=== PATIENT | female | born 1965 | race Hispanic/Latino ===

== ENCOUNTER 2017-12-02 15:32 | Emergency (ER) | payer OTHER ==
[~2017-12-02 15:32] MED LIST: CELE200 PO; FENT-77 TD; OXYC10TA48 PO; PREG75 PO; SENN-107 PO
[2017-12-02] MEDS ORDERED: DEXAMETHASONE SOD PHOSPHATE 10MG/ML 1ML VIAL ONE (16:17)
[2017-12-02] MEDS ORDERED: FAMOTIDINE 20MG TAB 20 MG TAB ONE (16:32)
[2018-02-05] MEDS ORDERED: LORA10CA9 PO (12:15)
[2018-02-05] MEDS ORDERED: TUMERIC PO (12:15)
[2018-02-05] MEDS ORDERED: FLUTICASONE (12:15)
[2018-02-05] MEDS ORDERED: ONDA8TAB12 PO (12:15)
[2018-02-05] MEDS ORDERED: PREG75 PO (12:15)
[2018-02-05] MEDS ORDERED: TRAZ-144 PO (12:15)
[2018-02-05] MEDS ORDERED: BISA5TAB12 PO (12:15)
[2018-02-05] MEDS ORDERED: DIPH25CA99 PO (12:15)
[2018-02-05] MEDS ORDERED: TOPI50TA24 PO (12:15)
== END 2017-12-02 17:30 | disposition home or self-care (01) ==
LOC: EDH 15:32
DX: T78.49XA Other allergy, initial encounter (principal); L29.9 Pruritus, unspecified; M19.90 Unspecified osteoarthritis, unspecified site; Z88.8 Allergy status to other drugs, medicaments and biological substances; Z91.041 Radiographic dye allergy status; Z91.040 Latex allergy status; X58.XXXA Exposure to other specified factors, initial encounter
CPT/HCPCS: 96372; 99283; J1100

== ENCOUNTER 2017-12-06 10:26 | Emergency (ER) | payer OTHER ==
[2017-12-06] MEDS ORDERED: ACETAMINOPHEN EXTRA STRENGTH 500 MG TABLET ONE (10:49)
[2017-12-06 12:06] LABS: RAPID GROUP A STREP NEGATIVE (NEGATIVE)
[2018-02-05] MEDS ORDERED: TRAZ-144 PO (12:15)
[2018-02-05] MEDS ORDERED: TUMERIC PO (12:15)
[2018-02-05] MEDS ORDERED: DIPH25CA99 PO (12:15)
[2018-02-05] MEDS ORDERED: ONDA8TAB12 PO (12:15)
[2018-02-05] MEDS ORDERED: BISA5TAB12 PO (12:15)
[2018-02-05] MEDS ORDERED: PREG75 PO (12:15)
[2018-02-05] MEDS ORDERED: TOPI50TA24 PO (12:15)
[2018-02-05] MEDS ORDERED: LORA10CA9 PO (12:15)
[2018-02-05] MEDS ORDERED: FLUTICASONE (12:15)
== END 2017-12-06 12:36 | disposition home or self-care (01) ==
LOC: EDH 10:26
DX: J10.1 Influenza due to other identified influenza virus with other respiratory manifestations (principal); M19.90 Unspecified osteoarthritis, unspecified site; M79.7 Fibromyalgia; Z88.8 Allergy status to other drugs, medicaments and biological substances; Z91.040 Latex allergy status; Z90.710 Acquired absence of both cervix and uterus; Z90.49 Acquired absence of other specified parts of digestive tract
CPT/HCPCS: 87804; 87880

== ENCOUNTER 2017-12-16 17:24 | Emergency (ER) | payer OTHER ==
[2017-12-16] MEDS ORDERED: PROCHLORPERAZINE EDISYLATE 10 MG/2 ML VIAL ONE ×2 (18:34→18:51)
[2017-12-16] MEDS ORDERED: SODIUM CHLORIDE 0.9% 1000ML 1,000 ML IV ONE ×2 (18:34→18:51)
[2017-12-16] MEDS ORDERED: DiphenhydrAMINE HCL 50 MG/ML VIAL ONE ×2 (18:34→18:51)
[2017-12-16] MEDS ORDERED: DEXAMETHASONE SOD PHOSPHATE 10MG/ML 1ML VIAL ONE ×2 (18:34→18:51)
[2018-02-05] MEDS ORDERED: DIPH25CA99 PO (12:15)
[2018-02-05] MEDS ORDERED: LORA10CA9 PO (12:15)
[2018-02-05] MEDS ORDERED: FLUTICASONE (12:15)
[2018-02-05] MEDS ORDERED: TOPI50TA24 PO (12:15)
[2018-02-05] MEDS ORDERED: PREG75 PO (12:15)
[2018-02-05] MEDS ORDERED: TRAZ-144 PO (12:15)
[2018-02-05] MEDS ORDERED: TUMERIC PO (12:15)
[2018-02-05] MEDS ORDERED: BISA5TAB12 PO (12:15)
[2018-02-05] MEDS ORDERED: ONDA8TAB12 PO (12:15)
== END 2017-12-16 20:15 | disposition home or self-care (01) ==
LOC: EDH 17:24
DX: G43.909 Migraine, unspecified, not intractable, without status migrainosus (principal); R11.2 Nausea with vomiting, unspecified; M19.90 Unspecified osteoarthritis, unspecified site; M79.1 Myalgia; Z91.041 Radiographic dye allergy status; Z91.040 Latex allergy status; Z88.8 Allergy status to other drugs, medicaments and biological substances; Z90.710 Acquired absence of both cervix and uterus
CPT/HCPCS: 96361; 96374; 96375; 99284; J0780 ×2; J1100 ×2; J1200 ×2; J7030 ×2

== ENCOUNTER 2017-12-28 10:29 | Emergency (ER) | payer OTHER ==
[2017-12-28] MEDS ORDERED: ONDANSETRON HCL 4 MG/2 ML VIAL ONE (11:21)
[2017-12-28] MEDS ORDERED: KETOROLAC TROMETHAMINE 30MG/ML ONE (11:21)
[2017-12-28] MEDS ORDERED: DiphenhydrAMINE HCL 50 MG/ML VIAL ONE (11:21)
[2017-12-28] MEDS ORDERED: DEXAMETHASONE SOD PHOSPHATE 10MG/ML 1ML VIAL ONE (12:05)
[2018-02-05] MEDS ORDERED: PREG75 PO (12:15)
[2018-02-05] MEDS ORDERED: FLUTICASONE (12:15)
[2018-02-05] MEDS ORDERED: DIPH25CA99 PO (12:15)
[2018-02-05] MEDS ORDERED: BISA5TAB12 PO (12:15)
[2018-02-05] MEDS ORDERED: LORA10CA9 PO (12:15)
[2018-02-05] MEDS ORDERED: TRAZ-144 PO (12:15)
[2018-02-05] MEDS ORDERED: TOPI50TA24 PO (12:15)
[2018-02-05] MEDS ORDERED: ONDA8TAB12 PO (12:15)
[2018-02-05] MEDS ORDERED: TUMERIC PO (12:15)
== END 2017-12-28 12:53 | disposition home or self-care (01) ==
LOC: EDH 10:29
DX: G43.909 Migraine, unspecified, not intractable, without status migrainosus (principal); M19.90 Unspecified osteoarthritis, unspecified site; Z88.8 Allergy status to other drugs, medicaments and biological substances; Z91.041 Radiographic dye allergy status; Z91.040 Latex allergy status
CPT/HCPCS: 70450; 96374; 96375; 99284; J1100; J1200; J1885; J2405

== ENCOUNTER 2018-01-06 12:29 | Emergency (ER) | payer OTHER ==
[~2018-01-06] VITALS: Ht 162.6 cm; Wt 97.5 kg
[2018-01-06] MEDS ORDERED: DiphenhydrAMINE HCL 50 MG/ML VIAL ONE (14:33)
[2018-01-06] MEDS ORDERED: ONDANSETRON HCL 4 MG/2 ML VIAL ONE (14:33)
[2018-01-06] MEDS ORDERED: KETOROLAC TROMETHAMINE 30MG/ML ONE (14:33)
[2018-01-06] MEDS ORDERED: METOCLOPRAMIDE 10 MG TABLET ONE (14:34)
[2018-01-06 15:23] LABS: BASOPHILS % (AUTO) 0.8 % (0.0-5.0); EOSINOPHILS % (AUTO) 2.5 % (0.0-8.0); HEMATOCRIT 39.8 % (36-48); LYMPHOCYTES % (AUTO) 32.1 % (21.0-51.0); MEAN CORPUSCULAR HEMOGLOBIN 30.1 pg (27.0-33.0); MEAN CORPUSCULAR HGB CONC 34.2 g/dL (32.0-36.0); MEAN CORPUSCULAR VOLUME 87.9 fL (79-99); MONOCYTES % (AUTO) 8.6 % (3.0-13.0); PLATELET COUNT (AUTO) 313 K/uL (130-400); RED BLOOD CELL COUNT(AUTO) 4.53 MIL/uL (4.00-5.50); RED CELL DISTRIBUTION WIDTH 13.6 % (11.0-15.5); WHITE BLOOD COUNT (AUTO) 5.7 K/uL (4.8-10.8)
[2018-01-06 15:40] LABS: CREATININE 0.8 mg/dL (0.5-1.5); POTASSIUM 4.4 mmol/L (3.5-5.1)
[2018-01-06] MEDS ORDERED: SUMATRIPTAN SUCCINATE 25 MG TABLET PO NR (16:45)
[2018-02-05] MEDS ORDERED: DIPH25CA99 PO (12:15)
[2018-02-05] MEDS ORDERED: TUMERIC PO (12:15)
[2018-02-05] MEDS ORDERED: TOPI50TA24 PO (12:15)
[2018-02-05] MEDS ORDERED: PREG75 PO (12:15)
[2018-02-05] MEDS ORDERED: FLUTICASONE (12:15)
[2018-02-05] MEDS ORDERED: ONDA8TAB12 PO (12:15)
[2018-02-05] MEDS ORDERED: BISA5TAB12 PO (12:15)
[2018-02-05] MEDS ORDERED: LORA10CA9 PO (12:15)
[2018-02-05] MEDS ORDERED: TRAZ-144 PO (12:15)
== END 2018-01-06 17:09 | disposition home or self-care (01) ==
LOC: EDH 12:29
DX: G43.909 Migraine, unspecified, not intractable, without status migrainosus (principal); M19.90 Unspecified osteoarthritis, unspecified site; M79.7 Fibromyalgia; Z88.8 Allergy status to other drugs, medicaments and biological substances; Z90.49 Acquired absence of other specified parts of digestive tract
CPT/HCPCS: 36415; 70450; 80048; 85025; 85651; 96374; 96375; 99285; J1200; J1885; J2405

== ENCOUNTER 2018-02-06 06:27 | Day surgery (SDC) | payer OTHER ==
[~2018-02-06] VITALS: Ht 165.1 cm; Wt 35.8 kg
[~2018-02-06 06:27] MED LIST changes: +BISA5TAB12 PO; -CELE200 PO; +DIPH25CA99 PO; -FENT-77 TD; +FLUTICASONE; +LORA10CA9 PO; +ONDA8TAB12 PO; -OXYC10TA48 PO; -SENN-107 PO; +TOPI50TA24 PO; +TRAZ-144 PO; +TUMERIC PO
[2018-02-06 06:34] VITALS: BP 106/54
[2018-02-06] MEDS ORDERED: SODIUM CHLORIDE 0.9% 1000ML 1,000 ML IV ONE (06:34)
[2018-02-06] MEDS ORDERED: ESOM20CA31 PO (07:23)
[2018-02-06] MEDS ORDERED: ONDANSETRON HCL MDV 20ML 2 MG/ML VIAL ONE (07:57)
== END 2018-02-06 08:40 | disposition home or self-care (01) ==
LOC: DAH 06:27
PROVIDERS: ATTEND Internal Medicine Gastroenterology
DX: R10.10 Upper abdominal pain, unspecified (principal); Z53.8 Procedure and treatment not carried out for other reasons
CPT/HCPCS: 43235; A4606; J7030

== ENCOUNTER → 2018-02-13 | Outpatient (CLI) | payer OTHER ==
[~2018-02-13] MED LIST changes: +ESOM20CA31 PO
== END ==
LOC: RAH 11:02
PROVIDERS: ATTEND Internal Medicine Gastroenterology
DX: R11.0 Nausea (principal)
CPT/HCPCS: 78264; A9541

== ENCOUNTER 2018-02-14 17:42 | Emergency (ER) | payer OTHER ==
[2018-02-14] MEDS ORDERED: LIDOCAINE 5% TOPICAL PATCH TP ONE (17:55)
[2018-02-14] MEDS ORDERED: KETOROLAC TROMETHAMINE 60 MG/2 ML VIAL ONE (17:55)
== END 2018-02-14 18:10 | disposition home or self-care (01) ==
LOC: EDH 17:42
DX: G89.29 Other chronic pain (principal); M54.5 Low back pain; M19.90 Unspecified osteoarthritis, unspecified site; M79.7 Fibromyalgia; G43.909 Migraine, unspecified, not intractable, without status migrainosus; Z91.040 Latex allergy status; Z88.8 Allergy status to other drugs, medicaments and biological substances
CPT/HCPCS: 96372; 99283; J1885

== ENCOUNTER → 2018-08-29 | Outpatient (CLI) | payer OTHER ==
[~2018-08-29] MED LIST changes: -TRAZ-144 PO; +TRAZ-185 PO
== END | disposition home or self-care (01) ==
LOC: RAH 09:12
PROVIDERS: ATTEND Internal Medicine Gastroenterology
DX: K76.89 Other specified diseases of liver (principal); R93.3 Abnormal findings on diagnostic imaging of other parts of digestive tract
CPT/HCPCS: 76700

== ENCOUNTER → 2018-09-04 | Outpatient (CLI) | payer OTHER | END | disposition home or self-care (01) | LOC: RAH 11:10 | PROVIDERS: ATTEND Physician Assistant Medical | DX: Z12.31 Encounter for screening mammogram for malignant neoplasm of breast (principal) | CPT/HCPCS: 77067 ==

== ENCOUNTER → 2018-09-24 | Outpatient (CLI) | payer OTHER | END | disposition home or self-care (01) | LOC: RAH 13:58 | PROVIDERS: ATTEND Internal Medicine Critical Care Medicine | DX: N60.01 Solitary cyst of right breast (principal); R92.8 Other abnormal and inconclusive findings on diagnostic imaging of breast; M19.90 Unspecified osteoarthritis, unspecified site | CPT/HCPCS: 76641; 77066 ==

== ENCOUNTER 2019-05-09 19:02 | Emergency (ER) | payer OTHER ==
[2019-05-09 20:22] LABS: BASOPHILS % (AUTO) 0.4 % (0.0-5.0); EOSINOPHILS % (AUTO) 0.6 % (0.0-8.0); HEMATOCRIT 32.7 % (36-48); MEAN CORPUSCULAR HEMOGLOBIN 28.4 pg (27.0-33.0); MEAN CORPUSCULAR HGB CONC 32.6 g/dL (32.0-36.0); MEAN CORPUSCULAR VOLUME 87.1 fL (79-99); MONOCYTES % (AUTO) 7.4 % (3.0-13.0); NEUTROPHILS % (AUTO) 71.6 % (40.0-77.0); PLATELET COUNT (AUTO) 152 K/uL (130-400); RED BLOOD CELL COUNT(AUTO) 3.76 MIL/uL (4.00-5.50); WHITE BLOOD COUNT (AUTO) 7.3 K/uL (4.8-10.8)
[2019-05-09 20:25] LABS: CREATININE 0.9 mg/dL (0.5-1.5); POTASSIUM 3.9 mmol/L (3.5-5.1)
== END 2019-05-09 21:52 | disposition home or self-care (01) ==
LOC: EDH 19:02
DX: R00.2 Palpitations (principal); F41.9 Anxiety disorder, unspecified; G43.909 Migraine, unspecified, not intractable, without status migrainosus; M19.90 Unspecified osteoarthritis, unspecified site; M79.7 Fibromyalgia; Z90.710 Acquired absence of both cervix and uterus; Z90.49 Acquired absence of other specified parts of digestive tract; Z88.8 Allergy status to other drugs, medicaments and biological substances
CPT/HCPCS: 36415; 71045; 80048; 83880; 84484; 85025; 93005

== ENCOUNTER 2019-07-05 17:25 | Emergency (ER) | payer OTHER ==
[2019-07-05] MEDS ORDERED: DEXAMETHASONE SOD PHOSPHATE 10MG/ML 1ML VIAL ONE (17:46)
[2019-07-05] MEDS ORDERED: PROCHLORPERAZINE EDISYLATE 10 MG/2 ML VIAL ONE (17:46)
[2019-07-05] MEDS ORDERED: DIPHENHYDRAMINE HCL 25 MG CAPSULE ONE (17:46)
[2019-07-05] MEDS ORDERED: SODIUM CHLORIDE 0.9% 1000ML 1,000 ML IV ONE (17:46)
[2019-07-10] MEDS ORDERED: CELE-84 PO (01:46)
[2019-07-10] MEDS ORDERED: PREG75 PO (01:46)
[2019-07-10] MEDS ORDERED: LUBI24CA2 PO ×2 (01:46→01:51)
[2019-07-10] MEDS ORDERED: BACL10TA PO (01:46)
[2019-07-10] MEDS ORDERED: TRAM50TA4 PO (01:46)
[2019-07-10] MEDS ORDERED: BUSP30TA2 PO (01:46)
[2019-07-10] MEDS ORDERED: CHOL500050 PO (01:46)
[2019-07-10] MEDS ORDERED: ONDA8TAB12 PO (01:46)
[2019-07-10] MEDS ORDERED: BETH25 PO (01:46)
[2019-07-10] MEDS ORDERED: ASPI-555 PO (15:41)
== END 2019-07-05 19:18 | disposition home or self-care (01) ==
LOC: EDH 17:25
DX: G43.909 Migraine, unspecified, not intractable, without status migrainosus (principal); F41.9 Anxiety disorder, unspecified; M19.90 Unspecified osteoarthritis, unspecified site; Z90.49 Acquired absence of other specified parts of digestive tract; Z90.710 Acquired absence of both cervix and uterus; Z91.041 Radiographic dye allergy status; Z91.040 Latex allergy status; Z88.8 Allergy status to other drugs, medicaments and biological substances
CPT/HCPCS: 96374; 96375; 99284; J0780; J1100; J7030; Q0163

== ENCOUNTER 2019-07-09 16:38 | Observation (INO) | payer OTHER | END 2019-07-11 17:30 | disposition home or self-care (01) | LOC: EDH 16:38 → EDHIP 18:56 → 3CH 21:40 ==

== ENCOUNTER → 2019-10-14 | Outpatient (CLI) | payer OTHER ==
[~2019-10-14] MED LIST changes: +ASPI-555 PO; +BACL10TA PO; +BETH25 PO; -BISA5TAB12 PO; +BUSP30TA2 PO; +CELE-84 PO; -DIPH25CA99 PO; -ESOM20CA31 PO; -FLUTICASONE; +FOLI1TAB15 PO; -LORA10CA9 PO; +LUBI24CA2 PO; +TRAM50TA4 PO; -TRAZ-185 PO; -TUMERIC PO
== END | disposition home or self-care (01) ==
LOC: RAH 10:57
PROVIDERS: ATTEND Internal Medicine Critical Care Medicine
DX: N60.01 Solitary cyst of right breast (principal); N64.89 Other specified disorders of breast; N63.11 Unspecified lump in the right breast, upper outer quadrant; N60.02 Solitary cyst of left breast
CPT/HCPCS: 76641; 77066

== ENCOUNTER → 2020-12-02 | Outpatient (CLI) | payer OTHER ==
[~2020-12-02] MED LIST changes: -ASPI-555 PO; +ASPI-556 PO
== END | disposition home or self-care (01) ==
LOC: RAH 10:02
PROVIDERS: ATTEND Physician Assistant Medical
DX: N60.01 Solitary cyst of right breast (principal); N60.02 Solitary cyst of left breast; N63.32 Unspecified lump in axillary tail of the left breast; N63.31 Unspecified lump in axillary tail of the right breast
CPT/HCPCS: 77066

== ENCOUNTER → 2022-02-09 | Outpatient (CLI) | payer OTHER | END | disposition home or self-care (01) | LOC: RAH 15:35 | PROVIDERS: ATTEND Internal Medicine Critical Care Medicine | DX: Z12.31 Encounter for screening mammogram for malignant neoplasm of breast (principal) | CPT/HCPCS: 77067 ==

== ENCOUNTER 2022-03-28 16:56 | Emergency (ER) | payer OTHER ==
[~2022-03-28] VITALS: Ht 162.6 cm; Wt 102.1 kg
[2022-03-28 17:01] VITALS: BP 117/77
[2022-03-28 18:15] LABS: BASOPHILS % (AUTO) 0.3 % (0.0-5.0); EOSINOPHILS % (AUTO) 0.5 % (0.0-8.0); HEMATOCRIT 44.9 % (36-48); LYMPHOCYTES % (AUTO) 32.7 % (21.0-51.0); MEAN CORPUSCULAR HEMOGLOBIN 29.5 pg (27.0-33.0); MEAN CORPUSCULAR HGB CONC 33.4 g/dL (32.0-36.0); MEAN CORPUSCULAR VOLUME 88.4 fL (79-99); MONOCYTES % (AUTO) 6.8 % (3.0-13.0); NEUTROPHILS % (AUTO) 59.5 % (40.0-77.0); PLATELET COUNT (AUTO) 372 K/uL (130-400); RED BLOOD CELL COUNT(AUTO) 5.08 MIL/uL (4.00-5.50); RED CELL DISTRIBUTION WIDTH 12.6 % (11.0-15.5); WHITE BLOOD COUNT (AUTO) 9.7 K/uL (4.8-10.8)
[2022-03-28 18:21] LABS: APPEARANCE,URINE Clear (CLEAR); BILIRUBIN,URINE Negative (NEGATIVE); COLOR,URINE Yellow (YELLOW); GLUCOSE, URINE (UA) Negative (NEGATIVE); KETONES,URINE Trace mg/dL (NEGATIVE); LEUKOCYTE ESTERASE ,URINE Moderate (NEGATIVE); NITRATE,URINE Negative (NEGATIVE); OCCULT BLOOD,URINE Negative (NEGATIVE); PROTEIN,URINE Trace mg/dL (NEGATIVE)
[2022-03-28 18:31] LABS: CREATININE 1.1 mg/dL (0.5-1.5); POTASSIUM 3.5 mmol/L (3.5-5.1)
[2022-03-28 18:36] LABS: ALBUMIN 4.1 g/dL (3.5-5.0); BILIRUBIN,TOTAL 0.4 mg/dL (0.2-1.0); TOTAL PROTEIN, SERUM 7.8 g/dL (6.0-8.3)
[2022-03-28] MEDS ORDERED: PROMETHAZINE HCL 25 MG TABLET PO SCH (19:00)
[2022-03-28] MEDS ORDERED: DIPHENHYDRAMINE HCL 25 MG CAPSULE PO ONE (19:00)
[2022-03-28] MEDS ORDERED: MACR100 PO (19:04)
[2022-03-28 19:19] LABS: BACTERIA,URINE Few /HPF (None Seen); MUCUS,URINE Many LPF (None Seen); SQUAMOUS EPITHELIAL CELL,UR Few /HPF (0-2)
== END 2022-03-28 19:31 | disposition home or self-care (01) ==
LOC: EDH 16:56
DX: R11.2 Nausea with vomiting, unspecified (principal); L29.9 Pruritus, unspecified; N39.0 Urinary tract infection, site not specified; M19.90 Unspecified osteoarthritis, unspecified site; M79.7 Fibromyalgia; G43.909 Migraine, unspecified, not intractable, without status migrainosus; Z88.8 Allergy status to other drugs, medicaments and biological substances; Z88.6 Allergy status to analgesic agent; Z91.040 Latex allergy status; Z79.899 Other long term (current) drug therapy; Z79.82 Long term (current) use of aspirin; Z90.49 Acquired absence of other specified parts of digestive tract; Z98.890 Other specified postprocedural states
CPT/HCPCS: 36415; 80053; 81001; 85025; 87088; 99283; Q0163; Q0169

== ENCOUNTER → 2022-05-03 | Outpatient (CLI) | payer OTHER ==
[~2022-05-03] MED LIST changes: +IOHEXOL-350 75 ML VIAL IV ONE; +MACR100 PO; +PSEU120T89 PO; +SULF1TAB42 PO
== END | disposition home or self-care (01) ==
LOC: RAH 08:03
PROVIDERS: ATTEND Internal Medicine Gastroenterology
DX: K59.04 Chronic idiopathic constipation (principal); K59.09 Other constipation; Z90.49 Acquired absence of other specified parts of digestive tract
CPT/HCPCS: 74178; Q9967

== ENCOUNTER 2022-07-17 20:12 | Emergency (ER) | payer OTHER ==
[~2022-07-17] VITALS: Ht 152.4 cm; Wt 98.0 kg
[~2022-07-17 20:12] MED LIST changes: -IOHEXOL-350 75 ML VIAL IV ONE
[2022-07-17 20:15] VITALS: BP 132/80
[2022-07-17] MEDS ORDERED: KETOROLAC 30MG VIAL (30MG/ML) IVP ONE (21:00)
[2022-07-17] MEDS ORDERED: METOCLOPRAMIDE 10 MG/2 ML VIAL IVP ONE (21:00)
[2022-07-17] MEDS ORDERED: ONDANSETRON 4MG INJ IVP ONE (21:00)
[2022-07-17] MEDS ORDERED: DiphenhydrAMINE HCL 50 MG/ML VIAL IV ONE (21:00)
[2022-07-17] MEDS ORDERED: DEXAMETHASONE SOD PHOSPHATE 4 MG/ML 1ML VIAL IVP ONE (21:00)
[2022-07-17] MEDS ORDERED: 0.9%NACL 1000ML 1,000 ML IV ONE (21:02)
[2022-07-17 21:06] LABS: BASOPHILS % (AUTO) 0.4 % (0.0-5.0); EOSINOPHILS % (AUTO) 0.4 % (0.0-8.0); HEMATOCRIT 42.1 % (36-48); LYMPHOCYTES % (AUTO) 38.9 % (21.0-51.0); MEAN CORPUSCULAR HEMOGLOBIN 29.3 pg (27.0-33.0); MEAN CORPUSCULAR HGB CONC 33.3 g/dL (32.0-36.0); MEAN CORPUSCULAR VOLUME 88.1 fL (79-99); MONOCYTES % (AUTO) 8.5 % (3.0-13.0); NEUTROPHILS % (AUTO) 51.5 % (40.0-77.0); PLATELET COUNT (AUTO) 304 K/uL (130-400); RED BLOOD CELL COUNT(AUTO) 4.78 MIL/uL (4.00-5.50); RED CELL DISTRIBUTION WIDTH 12.8 % (11.0-15.5); WHITE BLOOD COUNT (AUTO) 7.2 K/uL (4.8-10.8)
[2022-07-17 21:12] LABS: CREATININE 0.9 mg/dL (0.5-1.5); POTASSIUM 4.1 mmol/L (3.5-5.1)
[2022-07-17 21:18] LABS: APPEARANCE,URINE CLEAR (CLEAR); BILIRUBIN,URINE NEGATIVE (NEGATIVE); COLOR,URINE YELLOW (YELLOW); GLUCOSE, URINE (UA) NEGATIVE (NEGATIVE); KETONES,URINE NEGATIVE (NEGATIVE); LEUKOCYTE ESTERASE ,URINE SMALL (NEGATIVE); NITRATE,URINE NEGATIVE (NEGATIVE); OCCULT BLOOD,URINE TRACE-INTACT (NEGATIVE); PROTEIN,URINE NEGATIVE (NEGATIVE); UROBILINOGEN,URINE 0.2 mg/dL (0.2-1.0)
[2022-07-17 21:26] LABS: BACTERIA,URINE None Seen /HPF (None Seen); RBC,URINE 0-1 /HPF (0-1); SQUAMOUS EPITHELIAL CELL,UR Rare /HPF (0-2); WBC,URINE 0-1 /HPF (0-1)
== END 2022-07-17 22:18 | disposition home or self-care (01) ==
LOC: EDH 20:12
DX: G43.909 Migraine, unspecified, not intractable, without status migrainosus (principal); M19.90 Unspecified osteoarthritis, unspecified site; E86.1 Hypovolemia; Z79.1 Long term (current) use of non-steroidal anti-inflammatories (NSAID); Z79.52 Long term (current) use of systemic steroids; Z79.82 Long term (current) use of aspirin; Z79.899 Other long term (current) drug therapy; Z88.8 Allergy status to other drugs, medicaments and biological substances
CPT/HCPCS: 99284; 96374; 96375; 96361; 80048; 85025; 81001; 36415; J1100; J1200; J7030; J2405; J1885; J2765

== ENCOUNTER → 2023-01-26 | Outpatient (CLI) | payer OTHER ==
[~2023-01-26] MED LIST changes: +TOPI-255 PO; -TOPI50TA24 PO
== END | disposition home or self-care (01) ==
LOC: RAH 10:49
PROVIDERS: ATTEND Internal Medicine Gastroenterology
DX: R11.2 Nausea with vomiting, unspecified (principal); R14.0 Abdominal distension (gaseous)
CPT/HCPCS: 78264; A9541

== ENCOUNTER → 2023-02-12 | Outpatient (CLI) | payer OTHER | END | disposition home or self-care (01) | LOC: RAH 10:40 | PROVIDERS: ATTEND Internal Medicine Gastroenterology | DX: Z12.31 Encounter for screening mammogram for malignant neoplasm of breast (principal) | CPT/HCPCS: 77067 ==

== ENCOUNTER 2023-04-13 19:08 | Emergency (ER) | payer OTHER ==
[~2023-04-13] VITALS: Ht 162.6 cm; Wt 99.8 kg
[2023-04-13 19:26] LABS: BASOPHILS % (AUTO) 0.2 % (0.0-5.0); EOSINOPHILS % (AUTO) 0.1 % (0.0-8.0); HEMATOCRIT 45.3 % (36-48); LYMPHOCYTES % (AUTO) 10.1 % (21.0-51.0); MEAN CORPUSCULAR HEMOGLOBIN 28.8 pg (27.0-33.0); MEAN CORPUSCULAR HGB CONC 32.5 g/dL (32.0-36.0); MEAN CORPUSCULAR VOLUME 88.8 fL (79-99); MONOCYTES % (AUTO) 4.3 % (3.0-13.0); NEUTROPHILS % (AUTO) 85.1 % (40.0-77.0); PLATELET COUNT (AUTO) 325 K/uL (130-400); RED CELL DISTRIBUTION WIDTH 12.7 % (11.0-15.5); WHITE BLOOD COUNT (AUTO) 12.6 K/uL (4.8-10.8)
[2023-04-13 19:42] LABS: APPEARANCE,URINE CLEAR (CLEAR); BILIRUBIN,URINE NEGATIVE (NEGATIVE); COLOR,URINE LIGHT-YELLOW (YELLOW); GLUCOSE, URINE (UA) NEGATIVE (NEGATIVE); KETONES,URINE 5 mg/dL (NEGATIVE); LEUKOCYTE ESTERASE ,URINE 25 Leu/uL (NEGATIVE); NITRATE,URINE NEGATIVE (NEGATIVE); OCCULT BLOOD,URINE NEGATIVE (NEGATIVE); PROTEIN,URINE NEGATIVE (NEGATIVE); UROBILINOGEN,URINE 0.2 mg/dL (0.2-1.0)
[2023-04-13 19:47] LABS: BACTERIA,URINE RARE /HPF (None Seen); MUCUS,URINE RARE LPF (None Seen); SQUAMOUS EPITHELIAL CELL,UR RARE /HPF (0-2)
[2023-04-13] MEDS ORDERED: PEG 3350/NA SULF,BICARB,CL/KCL 4000 ML SOLN PO SCH (20:00)
[2023-04-13] MEDS ORDERED: PEG 3350/NA SULF,BICARB,CL/KCL 4000 ML SOLN ONE (20:05)
[2023-04-13 20:26] LABS: ALBUMIN 3.4 g/dL (3.5-5.0); CREATININE 0.8 mg/dL (0.5-1.5); TOTAL PROTEIN, SERUM 6.9 g/dL (6.0-8.3)
[2023-04-13 20:27] LABS: POTASSIUM 4.3 mmol/L (3.5-5.1)
[2023-04-13] MEDS ORDERED: KETOROLAC 15MG/ML VIAL (15MG/ML) IV ONE (20:30)
[2023-04-13 21:11] VITALS: BP 122/65
[2023-04-13] MEDS ORDERED: GOLY4L PO (22:08)
== END 2023-04-13 22:26 | disposition home or self-care (01) ==
LOC: EDH 19:08
DX: K59.00 Constipation, unspecified (principal); M79.7 Fibromyalgia; G43.909 Migraine, unspecified, not intractable, without status migrainosus; Z88.5 Allergy status to narcotic agent; Z88.8 Allergy status to other drugs, medicaments and biological substances; Z79.899 Other long term (current) drug therapy; Z90.710 Acquired absence of both cervix and uterus; Z90.49 Acquired absence of other specified parts of digestive tract
CPT/HCPCS: 99284; 96374; 80053; 83690; 85025; 81001; 36415; 74021; J1885

== ENCOUNTER → 2024-02-14 | Outpatient (CLI) | payer OTHER ==
[~2024-02-14] MED LIST changes: +CELE-125 PO; -CELE-84 PO; +GOLY4L PO; -TOPI-255 PO; +TOPI-97 PO
== END | disposition home or self-care (01) ==
LOC: RAH 13:18
PROVIDERS: ATTEND Family Medicine
DX: Z12.31 Encounter for screening mammogram for malignant neoplasm of breast (principal)
CPT/HCPCS: 77067

== ENCOUNTER → 2024-05-16 | Outpatient (CLI) | payer OTHER ==
[~2024-05-16] MED LIST changes: +GADOTERATE MEGLUMINE 10 MMOL/20 ML VIAL IV ONE; +ONDA-245 PO; -ONDA8TAB12 PO
== END | disposition home or self-care (01) ==
LOC: RAH 10:45
PROVIDERS: ATTEND Internal Medicine Gastroenterology
DX: K76.89 Other specified diseases of liver (principal); R93.2 Abnormal findings on diagnostic imaging of liver and biliary tract; Z90.49 Acquired absence of other specified parts of digestive tract
CPT/HCPCS: 74183; A9575

== ENCOUNTER 2024-06-04 18:13 | Emergency (ER) | payer OTHER ==
[~2024-06-04] VITALS: Ht 162.6 cm; Wt 95.3 kg
[~2024-06-04 18:13] MED LIST changes: -GADOTERATE MEGLUMINE 10 MMOL/20 ML VIAL IV ONE
[2024-06-04] MEDS: ASPIRIN 325MG TAB PO ONE (18:30)
[2024-06-04] MEDS: 0.9%NACL 1000ML 1,000 ML IV STA (18:32)
[2024-06-04 19:16] LABS: BASOPHILS # (AUTO) 0.04 K/uL (0.00-0.20); BASOPHILS % (AUTO) 0.5 % (0.0-5.0); EOSINOPHILS # (AUTO) 0.01 K/uL (0.00-0.70); EOSINOPHILS % (AUTO) 0.1 % (0.0-8.0); HEMATOCRIT 42.6 % (36-48); IMMATURE GRANULOCYTE ABSOLUTE 0.04 K/uL (0-1); LYMPHOCYTES # (AUTO) 1.3 K/uL (1.0-4.8); LYMPHOCYTES % (AUTO) 15.2 % (21.0-51.0); MEAN CORPUSCULAR HEMOGLOBIN 29.7 pg (27.0-33.0); MEAN CORPUSCULAR HGB CONC 33.1 g/dL (32.0-36.0); MEAN CORPUSCULAR VOLUME 89.7 fL (79-99); MONOCYTES # (AUTO) 0.4 K/uL (0.1-1.0); MONOCYTES % (AUTO) 4.5 % (3.0-13.0); NEUTROPHILS # (AUTO) 6.9 K/uL (1.8-7.7); NEUTROPHILS % (AUTO) 79.2 % (40.0-77.0); PLATELET COUNT (AUTO) 315 K/uL (130-400); RED BLOOD CELL COUNT(AUTO) 4.75 MIL/uL (4.00-5.50); RED CELL DISTRIBUTION WIDTH 12.8 % (11.0-15.5); WHITE BLOOD COUNT (AUTO) 8.6 K/uL (4.8-10.8)
[2024-06-04 19:23] LABS: POTASSIUM 4.2 mmol/L (3.5-5.1)
[2024-06-04 19:30] LABS: ALBUMIN 4.3 g/dL (3.5-5.0); B-TYPE NATRIURETIC PEPTIDE 20 pg/mL (0-100); BILIRUBIN,TOTAL 0.4 mg/dL (0.2-1.0); TOTAL PROTEIN, SERUM 8.2 g/dL (6.0-8.3)
[2024-06-04] MEDS: NITROGLYCERIN 0.4 MG SL TAB SL PRN (22:43)
[2024-06-04 22:47] VITALS: BP 128/74; PULSE 88; RESP 18; O2SAT 97
== END 2024-06-04 22:54 | disposition home or self-care (01) ==
LOC: EDH 18:13
DX: R07.89 Other chest pain (principal); Z91.040 Latex allergy status; M79.7 Fibromyalgia; G43.909 Migraine, unspecified, not intractable, without status migrainosus; Z90.49 Acquired absence of other specified parts of digestive tract; Z90.710 Acquired absence of both cervix and uterus
CPT/HCPCS: 36415; 71045; 80053; 82550; 83880; 84484; 85025; 93005

== ENCOUNTER 2025-01-17 14:28 | Emergency (ER) | payer OTHER ==
[~2025-01-17] VITALS: Ht 162.6 cm; Wt 97.5 kg
[~2025-01-17 14:28] MED LIST changes: -LUBI24CA2 PO; +LUBI24CA40 PO
--- NOTE | 2025-01-17 14:56 | ERN ---
ED Note History of Present Illness Stated Complaint: BACK PAIN Chief Complaint: Lower Extremity Pain/Injury Time Seen by MD: 14:29 Dictation: PATIENT IS A 59-YEAR-OLD FEMALE COMING IN TODAY WITH COMPLAINTS ACUTE EXACERBATION OF CHRONIC LOW BACK PAIN THAT RUNS DOWN HER RIGHT POSTERIOR LEG FOR 2-3 YEARS. SHE HAS HAD NO RECENT TRAUMA OR FALLSS. STATES SHE SEES , SERVICES HOST. HE NORMALLY DOES INJECTIONS TO HER BACK HOWEVER HE IS NOT BACK IN [place] UNTIL January. SHE STATES WHEN SHE SEES HER PRIMARY CARE DOCTOR, DR. CORNEJO HE ONLY WE WILL PRESCRIBE HER TRAMADOL. NO CHANGE IN BOWEL OR BLADDER FUNCTION Allergies: Coded Allergies: Iodine and Iodide Containing Produc (Unverified Allergy, Unknown, 07/10/19) hydrocodone bit (Verified Allergy, Unknown, 09/29/16) latex (Unverified Allergy, Unknown, 02/05/18) zolpidem tartrate (Verified Allergy, Unknown, 09/29/16) Home Meds Active Scripts Prednisone (Prednisone) 20 Mg Tablet, 1 TAB PO AD for 6 Days, #14 TAB 0 Refills TAKE 1 TAB BY MOUTH THREE TIMES PER DAY X3 DAYS, THEN TAKE 1 TAB BY MOUTH TWICE A DAY X2 DAYS, THEN TAKE 1 TAB BY MOUTH ONCE A DAY X1 DAY. TAKE ALL DOSES WITH FOOD Prov:DONALD LOPEZ NP 01/17/25 Peg 3350/Na Sulf,Bicarb,Cl/KCl (Golytely/Colyte Soln) 1 Ml Soln, 4000 ML PO ONCE PRN for CONSTIPATION, #3 DOSE Prov:PERRY RAZA MD 04/13/23 Pseudoephedrine HCl (Pseudoephedrine) 120 Mg Tablet.er, 120 MG PO BID PRN for nasal congestion, #20 TAB 0 Refills Prov:LASHANDA HE MD 05/07/22 Sulfamethoxazole/Trimethoprim (Bactrim Ds Tablet) 1 Each Tablet, 1 TAB PO BID for 10 Days, #20 TAB 0 Refills Prov:LASHANDA HE MD 05/07/22 Nitrofurantoin/Nitrofuran Mac (Macrobid) 100 Mg Cap, 1 CAP PO BID for 7 Days, #14 CAP 0 Refills Prov:KAMRAN MEZAP 03/28/22 Folic Acid (Folic Acid) 1 Mg Tablet, 1 MG PO DAILY for 30 Days, TAB Prov:MAXIMILIANO NUNEZ BARBER 07/11/19 Aspirin (Aspir 81) 81 Mg Tablet.dr, 81 MG PO DAILY, #15 TAB Prov:MAYRAMAXIMILIANO BARBER 07/10/19 Reported Medications Lubiprostone (Amitiza) 24 Mcg Capsule, 24 MCG PO QODAY, CAP 07/10/19 Ondansetron (Ondansetron Odt) 8 Mg Tab.rapdis, 8 MG PO Q6HPRN PRN for NAUSEA, TAB 07/10/19 Buspirone HCl (Buspirone HCl) 30 Mg Tablet, 30 MG PO BID PRN for ANXIETY/AGITATION, TAB 07/10/19 Bethanechol Chloride (Urecholine) 25 Mg Tab, 25 MG PO TID, TAB 07/10/19 Baclofen (Baclofen) 10 Mg Tablet, 10 MG PO TID, TAB 07/10/19 Celecoxib (Celecoxib) 200 Mg Capsule, 200 MG PO BID, CAP 07/10/19 Pregabalin (Lyrica) 75 Mg Cap, 75 MG PO TID, CAP 07/10/19 Tramadol Hcl (Tramadol HCl) 50 Mg Tablet, 100 MG PO TID, TAB 07/10/19 Topiramate (Topiramate) 50 Mg Tablet, 50 MG PO BID, TAB 02/05/18 Past Medical History Past Medical History: Fibromyalgia, Glaucoma, Migraines, Other Additional Past Medical Hx: DISK HERNIATION , BACK PAIN, LEG PAIN Surgical History: Hysterectomy, Cholecystectomy Surgical History Other: HERNIATED DISC Social History: Negative, Other History: Not Applicable RN Note Reviewed/Agreed w/PFSH: Yes Review of System Dictation CONSTITUTIONAL: NEGATIVE EXCEPT FOR HPI HEAD/FACE: NEGATIVE EXCEPT FOR HPI EENT: NEGATIVE EXCEPT FOR HPI RESPIRATORY: NEGATIVE EXCEPT FOR HPI GASTROINTESTINAL/ABDOMINAL: NEGATIVE EXCEPT FOR HPI GENITOURINARY: NEGATIVE EXCEPT FOR HPI MUSCULOSKELETAL: NEGATIVE EXCEPT FOR HPI DIFFUSE LUMBAR PAIN INTEGUMENTARY: NEGATIVE EXCEPT FOR HPI NEUROLOGICAL/PSYCH: NEGATIVE EXCEPT FOR HPI HEMATOLOGIC/LYMPHATIC: NEGATIVE EXCEPT FOR HPI ALL SYSTEMS NEGATIVE, EXCEPT NOTED ABOVE. 13 POINT REVIEW OF SYSTEMS ASSESSED AND ALL NEGATIVE EXCEPT FOR ABOVE. Initial Vital Sign VS Vital Signs Date Time Temp Pulse Resp B/P (MAP) Pulse Ox O2 Delivery O2 Flow Rate FiO2 01/17/25 14:37 98.2 88 16 162/96 96 Room Air 0 01/17/25 16:14 21 Physical Exam Dictation VITAL SIGNS REVIEWED GENERAL APPEARANCE: ALERT, ORIENTED X 3, NO ACUTE DISTRESS, WELL DEVELOPED, NOURISHED. HEAD AND FACE: NON-TRAUMATIC. EYES: PERRL, PINK CONJUNCTIVAS, EYELID NO TRAUMA, ANTERIOR CHAMBER WITH ARCUS SENILIS. EARS: PINNAS INTACT AND NO SIGNS OF TRAUMA OR ERYTHEMA EAR CANALS CLEAR AND NO DISCHARGE TM NO ERYTHEMA NOSE: NO DISCHARGE, NO BLEEDING. OROPHARYNX: MOUTH NORMAL, TONGUE PINK, PHARYNX CLEAR,NO ERYTHEMA, TONSILS NO EXUDATES, NO ABSCESSES NOTED, MUCOUS MEMBRANE MOIST NECK: SUPPLE, NON-TENDER, NO THYROMEGALY, NO MASSES, NO JVD, NO BRUITS BREAST:DEFERRED CHEST:NO TENDERNESS, NO CREPITUS, NO PARADOXICAL MOVEMENT, NO RETRACTIONS LUNGS:CLEAR, WELL-VENTILATED, SYMMETRIC, NO RALES, NO WHEEZING, NO RHONCHI, NO STRIDOR, GOOD BREATH SOUNDS BILATERALLY HEART: REGULAR RATE, REGULAR RHYTHM, NO MURMUR, NO GALLOPS VASCULAR: NO PERIPHERAL EDEMA, ABDOMEN: SOFT, POSITIVE BOWEL SOUNDS, NONDISTENDED, NO GUARDING, NONTENDER, NO REBOUND, NO MASSES NO HEPATOMEGALY, NO SPLENOMEGALY, NO PUCKETT'S SIGN, NO HERNIAS. RECTAL: DEFERRED GENITAL: DEFERRED NEUROLOGICAL: NORMAL SPEECH, MOTOR FUNCTION INTACT, SENSORY FUNCTION INTACT MUSCULOSKELETAL: NECK NONTENDER, FULL RANGE OF MOTION, DIFFUSE LUMBOSACRAL TENDERNESS, FULL RANGE OF MOTION, POSITIVE STRAIGHT LEG RISE RIGHT LEG EXTREMITIES: NONTENDER, FULL RANGE OF MOTION SKIN: COLOR PINK, DRY, NO TURGOR, NO RASH, NO LACERATIONS, NO ABRASIONS, NO CONTUSIONS. LYMPHATIC: DEFERRED Results (Laboratory/Radiology) Labs Reviewed?: Yes ED Course ED Course Orders Procedure Category Date Status Time Cyclobenzaprine Hcl PHA 01/17/25 Complete (Cyclobenzaprine Hcl 15:00 Dexamethasone 4mg/Ml PHA 01/17/25 Complete 1ml Vial (Dexametha 15:00 Ibuprofen 600 Mg PHA 01/17/25 Complete Tablet (Motrin) 15:00 Current Medications Medications (Trade) Dose Ordered Sig/Rashel Route PRN Reason Start Time Stop Time Status Last Admin Dose Admin Cyclobenzaprine HCl (Cyclobenzaprine HCl) 10 mg ONCE ONCE PO 01/17/25 15:00 01/17/25 15:01 DC 01/17/25 15:45 Dexamethasone Sodium Phosphate (dexaMETHasone 4MG/ML 1ML VIAL) 8 mg ONCE ONCE IM 01/17/25 15:00 01/17/25 15:01 DC 01/17/25 15:45 Ibuprofen (moTRIN) 600 mg ONCE ONCE PO 01/17/25 15:00 01/17/25 15:01 DC 01/17/25 15:45 Vital Signs Date Time Temp Pulse Resp B/P (MAP) Pulse Ox O2 Delivery O2 Flow Rate FiO2 01/17/25 16:14 98.2 88 16 162/96 96 Room Air* 0 21 01/17/25 14:37 98.2 88 16 162/96 96 Room Air 0 1550/NO LABS OR IMAGING INDICATED. PATIENT WILL BE DISCHARGED HOME FOLLOW UP WITH OR HER PRIMARY CARE DOCTOR FOR FURTHER MANAGEMENT. Medical Decision Making MDM MEDICAL DECISION-MAKING BASED ON ACUTE EXACERBATION OF CHRONIC LOW BACK PAIN AND TREATMENT. PATIENT REQUIRED NO IMAGING OR LABS. DISCHARGED HOME WITH MEDROL DOSEPAK AND TOLD TO SEE HER DOCTOR ON SUNDAY WITHOUT FAIL CONTINUE TRAMADOL FROM HER DOCTOR DX & DISP Disposition: Discharge Departure Impression: Primary Impression: Acute exacerbation of chronic low back pain Additional Impression: Chronic right-sided low back pain with sciatica Condition: Stable Scripts Prednisone (Prednisone) 20 Mg Tablet 1 TAB PO AD for 6 Days, #14 TAB 0 Refills TAKE 1 TAB BY MOUTH THREE TIMES PER DAY X3 DAYS, THEN TAKE 1 TAB BY MOUTH TWICE A DAY X2 DAYS, THEN TAKE 1 TAB BY MOUTH ONCE A DAY X1 DAY. TAKE ALL DOSES WITH FOOD Prov: DONALD LOPEZ BARBER 01/17/25 Additional Instructions: FOLLOW-UP WITH PRIMARY CARE PROVIDER IN 1 TO 2 DAYS. TAKE MEDICATIONS DIREC JOHN HERE IN THE EMERGENCY ROOM. OKAY TO CONTINUE HOME MEDICATIONS UNLESS OTHERWISE DISCUSSED DURING YOUR VISIT IN THE EMERGENCY ROOM TODAY. RETURN TO YOUR NEAREST EMERGENCY ROOM IF SYMPTOMS WORSEN OR IF THERE IS NO IMPROVEMENT. CALL 911 IF YOU NEED IMMEDIATE ASSISTANCE. TAKE TYLENOL OR MOTRIN [id number] NEEDED AND IF NO CONTRAINDICATIONS ARE PRESENT. INCREASE ORAL HYDRATION. A WOUND CULTURE OR URINE CULTURE WAS ORDERED HERE IN THE EMERGENCY ROOM DEPARTMENT PLEASE FOLLOW-UP WITH PRIMARY CARE PROVIDER AND ADVISE THEM TO GET REPEAT PORTS FROM OUR FACILITY. IF YOU HAD ANY HIGINIO WRAP/SPLINTS THAT WERE APPLIED HERE, PLEASE DO NOT REMOVE THEM UNTIL YOU SEE YOUR PRIMARY CARE OR SPECIALTY. CONTINUE TRAMADOL AT HOME., WARM COMPRESSES TO BACK PAIN THREE TO 4 TIMES A DAY. TAKE PREDNISONE DIRECTED WITH FOOD DAILY TILL GONE. FOLLOW UP WITH YOUR PRIMARY CARE DOCTOR ON SUNDAY OR SEE YOUR SERVICES HOST. Referrals: PARESH JARAMILLO M.D. (PCP) Time of Disposition: 15:50 I have reviewed the case, and I agree with, Diagnosis and Plan DONALD LOPEZ NP Jan 17, 2025 14:56 JEFRY TOLEDO DO Jan 19, 2025 07:25
[2025-01-17] MEDS: dexaMETHasone SOD PHOSPHATE 4 MG/ML 1ML VIAL IM ONE (15:45)
[2025-01-17] MEDS: CYCLOBENZAPRINE HCL 10 MG TABLET PO ONE (15:45)
[2025-01-17] MEDS: ibuPROFEN 600 MG TABLET PO ONE (15:45)
[2025-01-17] MEDS ORDERED: PRED20TA3 PO (15:51)
[2025-01-17 16:14] VITALS: BP 162/96; PULSE 88; RESP 16; TEMP 98.2; O2SAT 96
== END 2025-01-17 16:17 | disposition home or self-care (01) ==
LOC: EDH 14:28
DX: M54.41 Lumbago with sciatica, right side (principal); M79.7 Fibromyalgia; Z79.82 Long term (current) use of aspirin; Z79.899 Other long term (current) drug therapy; Z88.8 Allergy status to other drugs, medicaments and biological substances; Z90.49 Acquired absence of other specified parts of digestive tract; Z90.710 Acquired absence of both cervix and uterus; Z91.041 Radiographic dye allergy status
CPT/HCPCS: 99283; 96372; J1100

== ENCOUNTER → 2025-02-16 | Outpatient (CLI) | payer OTHER ==
[~2025-02-16] MED LIST changes: +PRED20TA3 PO
--- NOTE | 2025-02-17 09:46 | HMCIMG ---
MAMMO SCREENING BILATERAL HISTORY: Screening mammogram. COMPARISON: 02/14/2024 TECHNIQUE: Bilateral screening mammogram with CAD was performed with craniocaudal and mediolateral oblique projections. FINDINGS: There are scattered areas of fibroglandular density. Dystrophic calcifications are seen. There is no evidence of a dominant mass, or suspicious microcalcification. There is no evidence of nipple retraction or skin thickening. IMPRESSION: 1. Stable mammogram. Patient was entered into a reminder system with a target due date for their next mammogram. BI-RADS: CATEGORY 2: BENIGN FINDINGS Recommend monthly self breast exam as well as annual clinical examination. A negative x-ray should not delay biopsy if a dominant or clinically suspicious mass is present, since 8-10% of cancers are not identified by mammography. Dense breasts particularly, may obscure an underlying neoplasm. Some of these may be detected clinically and therefore, clinical examination is an essential part of breast evaluation.
== END | disposition home or self-care (01) ==
LOC: RAH 16:02
PROVIDERS: ATTEND Family Medicine
DX: Z12.31 Encounter for screening mammogram for malignant neoplasm of breast (principal); R92.323 Mammographic fibroglandular density, bilateral breasts; R92.1 Mammographic calcification found on diagnostic imaging of breast
CPT/HCPCS: 77067

== ENCOUNTER 2025-05-21 11:36 | Emergency (ER) | payer OTHER ==
[~2025-05-21] VITALS: Ht 162.6 cm; Wt 97.5 kg
[2025-05-21 12:00] LABS: IMMATURE GRANULOCYTE ABSOLUTE 0.01 K/uL (0-1); NUCLEATED RED BLOOD CELLS 0.0 % (0.0-0.19); PLATELET COUNT (AUTO) 292 K/uL (130-400); RED BLOOD CELL COUNT(AUTO) 4.58 MIL/uL (4.00-5.50); RED CELL DISTRIBUTION WIDTH 12.7 % (11.0-15.5); WHITE BLOOD COUNT (AUTO) 4.3 K/uL (4.8-10.8)
[2025-05-21 12:02] LABS: APPEARANCE,URINE CLEAR (CLEAR); GLUCOSE, URINE (UA) NEGATIVE (NEGATIVE); LEUKOCYTE ESTERASE ,URINE NEGATIVE Leu/uL (NEGATIVE); NITRATE,URINE 1+ (NEGATIVE); OCCULT BLOOD,URINE +- (TRACE) (NEGATIVE)
[2025-05-21 12:08] LABS: CREATININE 0.8 mg/dL (0.5-1.0); GLOMERULAR FILTR. RATE CALC 83.0 mL/min (>90); GLUCOSE,RANDOM 95.0 mg/dL (70-105); SODIUM SERUM 142.0 mmol/L (136-145); UREA NITROGEN, BLOOD 15.0 mg/dL (7-18)
[2025-05-21 12:10] LABS: ADD UA MICROSCOPIC YES
[2025-05-21 12:17] LABS: SQUAMOUS EPITHELIAL CELL,UR RARE /HPF (0-2)
--- NOTE | 2025-05-21 13:23 | ERN ---
ED Note History of Present Illness Stated Complaint: UTI Chief Complaint: UTI without Fever Time Seen by MD: 11:38 Time Seen by Midlevel: 11:40 Dictation: 60-year-old female coming in with complaints of her usual chronic back pain and dysuria. Denies having any fevers, nausea or vomiting. Patient states she had a fall over a week ago and thinks that exacerbated her chronic back pain. Patient states she has not taking none of her chronic pain medications like tramadol or Celebrex due to having to be NPO for a visit she was going to do with the GI. Allergies: Coded Allergies: Iodine and Iodide Containing Produc (Unverified Allergy, Unknown, 07/10/19) hydrocodone bit (Verified Allergy, Unknown, 09/29/16) latex (Unverified Allergy, Unknown, 02/05/18) zolpidem tartrate (Verified Allergy, Unknown, 09/29/16) Home Meds Active Scripts Prednisone (Prednisone) 20 Mg Tablet, 1 TAB PO AD for 6 Days, #14 TAB 0 Refills TAKE 1 TAB BY MOUTH THREE TIMES PER DAY X3 DAYS, THEN TAKE 1 TAB BY MOUTH TWICE A DAY X2 DAYS, THEN TAKE 1 TAB BY MOUTH ONCE A DAY X1 DAY. TAKE ALL DOSES WITH FOOD Prov:DONALD LOPEZ RAG ROOM SUPERVISOR 01/17/25 Peg 3350/Na Sulf,Bicarb,Cl/KCl (Golytely/Colyte Soln) 1 Ml Soln, 4000 ML PO ONCE PRN for CONSTIPATION, #3 DOSE Prov:PERRY RAZA MD 04/13/23 Pseudoephedrine HCl (Pseudoephedrine) 120 Mg Tablet.er, 120 MG PO BID PRN for nasal congestion, #20 TAB 0 Refills Prov:LASHANDA HE MD 05/07/22 Sulfamethoxazole/Trimethoprim (Bactrim Ds Tablet) 1 Each Tablet, 1 TAB PO BID for 10 Days, #20 TAB 0 Refills Prov:LASHANDA HE MD 05/07/22 Nitrofurantoin/Nitrofuran Mac (Macrobid) 100 Mg Cap, 1 CAP PO BID for 7 Days, #14 CAP 0 Refills Prov:KAMRAN MEZA 03/28/22 Folic Acid (Folic Acid) 1 Mg Tablet, 1 MG PO DAILY for 30 Days, TAB Prov:MAXIMILIANO NUNEZ NP 07/11/19 Aspirin (Aspir 81) 81 Mg Tablet.dr, 81 MG PO DAILY, #15 TAB Prov:MAXIMILIANO NUNEZ RAG ROOM SUPERVISOR 07/10/19 Reported Medications Lubiprostone (Amitiza) 24 Mcg Capsule, 24 MCG PO QODAY, CAP 07/10/19 Ondansetron (Ondansetron Odt) 8 Mg Tab.rapdis, 8 MG PO Q6HPRN PRN for NAUSEA, TAB 07/10/19 Buspirone HCl (Buspirone HCl) 30 Mg Tablet, 30 MG PO BID PRN for ANXIETY/AGITATION, TAB 07/10/19 Bethanechol Chloride (Urecholine) 25 Mg Tab, 25 MG PO TID, TAB 07/10/19 Baclofen (Baclofen) 10 Mg Tablet, 10 MG PO TID, TAB 07/10/19 Celecoxib (Celecoxib) 200 Mg Capsule, 200 MG PO BID, CAP 07/10/19 Pregabalin (Lyrica) 75 Mg Cap, 75 MG PO TID, CAP 07/10/19 Tramadol Hcl (Tramadol HCl) 50 Mg Tablet, 100 MG PO TID, TAB 07/10/19 Topiramate (Topiramate) 50 Mg Tablet, 50 MG PO BID, TAB 02/05/18 Past Medical History Past Medical History: UTI, Other Additional Past Medical Hx: CHRONIC BACK PAIN Surgical History: Hysterectomy, Cholecystectomy Surgical History Other: HERNIATED DISC Social History: Negative, Other History: Not Applicable Review of System Dictation Constitutional: Negative for fever,chills, and weight loss Eyes: Negative for injury, pain,redness, and discharge ENT: Negative for injury,pain or swelling Cardiovascular: Negative for chest pain, palpitations, and edema Respiratory: Negative for shortness of breath, cough, and wheezing, Abdomen/GI: Negative for abdominal pain, nausea, vomiting, diarrhea, and constipation Back: Complaining of back pain : Negative for injury, bleeding and discharge, complaining of dysuria MS/Extremity: Negative for injury and deformity Skin: Negative for rash, and discoloration Neuro: Negative for headache, weakness, numbness, tingling, and seizure Psych: Negative for suicide ideation, homicidal ideation, and hallucinations Review of Systems: was completed Initial Vital Sign VS Vital Signs Date Time Temp Pulse Resp B/P (MAP) Pulse Ox O2 Delivery O2 Flow Rate FiO2 05/21/25 11:36 98.1 84 20 142/89 99 Room Air 0 Physical Exam Dictation General: awake, alert, NAD Head/Face: Normocephalic, atraumatic Eyes: PERRL, EOMI, vision at baseline ENT: oral cavity clear, TMs clear, no signs of infection Neck: Trachea midline, supple, no nuchal rigidity Cardiovascular: RRR, normal S1/S2, No MRGs, no JVD Respiratory: CTAB, no respiratory distress, No rales or wheezes Abdomen: Soft, non-tender, non-distended, normal bowel sounds, no guarding or rebound. Skin: Warm, dry, normal turgor, no rash MS/Extremity: Pulses equal, no cyanosis, neurovascular intact, FROM, no midline spine tenderness on palpation, Neuro: COAx4, GCS 15, strength 5/5, CN 2-12 intact, normal cerebellar exam, normal gait, Psych: Normal behavior, mood, and affect normal Results (Laboratory/Radiology) Laboratory/Radiology Laboratory Tests Test 05/21/25 11:48 05/21/25 11:52 Urine Color ORANGE (YELLOW) Urine Appearance CLEAR (CLEAR) Urine pH 6.5 (5.0-8.0) Urine Specific [place] 1.027 (1.001-1.031) Urine Protein 20 mg/dL (NEGATIVE) H Urine Glucose (UA) NEGATIVE mg/dL (NEGATIVE) Urine Ketones NEGATIVE mg/dL (NEGATIVE) Urine Occult Blood +- (TRACE) (NEGATIVE) H Urine Nitrate 1+ (NEGATIVE) H Urine Bilirubin 1 mg/dL (NEGATIVE) H Urine Urobilinogen SEE NOTE mg/dL (0.2-1.0) Urine Leukocyte Esterase NEGATIVE [place]/uL Urine RBC 6-10 /HPF (0-1) H Urine WBC 2-5 /HPF (0-1) H Urine Squamous Epithelial Cells RARE /HPF (0-2) Urine Bacteria FEW /HPF (None Seen) White Blood Count 4.3 K/uL (4.8-10.8) L Red Blood Count 4.58 MIL/uL (4.00-5.50) Hemoglobin 13.5 g/dL (12.0-16.0) Hematocrit 40.9 % (36-48) Mean Corpuscular Volume 89.3 fL (79-99) Mean Corpuscular Hemoglobin 29.5 pg (27.0-33.0) Mean Corpuscular Hemoglobin Concent 33.0 g/dL (32.0-36.0) Red Cell Distribution Width 12.7 % (11.0-15.5) Platelet Count 292 K/uL (130-400) Mean Platelet Volume 9.8 fL (7.5-10.5) Immature Granulocyte % (Auto) 0.2 % (0-1) Neutrophils (%) (Auto) 46.7 % (40.0-77.0) Lymphocytes (%) (Auto) 42.0 % (21.0-51.0) Monocytes (%) (Auto) 8.1 % (3.0-13.0) Eosinophils (%) (Auto) 2.3 % (0.0-8.0) Basophils (%) (Auto) 0.7 % (0.0-5.0) Neutrophils # (Auto) 2.0 K/uL (1.8-7.7) Lymphocytes # (Auto) 1.8 K/uL (1.0-4.8) Monocytes # (Auto) 0.4 K/uL (0.1-1.0) Eosinophils # (Auto) 0.10 K/uL (0.00-0.70) Basophils # (Auto) 0.03 K/uL (0.00-0.20) Absolute Immature Granulocyte (auto 0.01 K/uL (0-1) Nucleated Red Blood Cells 0.0 % (0.0-0.19) Sodium Level 142 mmol/L (136-145) Potassium Level 4.1 mmol/L (3.5-5.1) Chloride Level 107 mmol/L (101-111) Carbon Dioxide Level 29 mmol/L (21-32) Blood Urea Nitrogen 15 mg/dL (7-18) Creatinine 0.8 mg/dL (0.5-1.0) Glomerular Filtration Rate Calc 83 mL/min (>90) Random Glucose 95 mg/dL (70-105) Total Calcium 9.2 mg/dL (8.5-10.1) Labs Reviewed?: Yes ED Course ED Course Orders Procedure Category Date Status Time Cbc With Differential LAB 05/21/25 Complete 11:40 Basic Metabolic Panel LAB 05/21/25 Complete 11:40 Urinalysis Profile LAB 05/21/25 Complete 11:40 Culture Urine KRISTEN 05/21/25 In Process 12:11 Tramadol Hcl (Ultram) PHA 05/21/25 Complete 13:01 Methocarbamol PHA 05/21/25 Complete (Methocarbamol) 13:01 Current Medications Medications (Trade) Dose Ordered Sig/Rashel Route PRN Reason Start Time Stop Time Status Last Admin Dose Admin Methocarbamol (methoCARBamol) 1,000 mg ONCE STAT PO 05/21/25 13:01 05/21/25 13:04 DC Tramadol HCl (UltRAM) 50 mg ONCE STAT PO 05/21/25 13:01 05/21/25 13:04 DC Vital Signs Date Time Temp Pulse Resp B/P (MAP) Pulse Ox O2 Delivery O2 Flow Rate FiO2 05/21/25 11:36 98.1 84 20 142/89 99 Room Air 0 Medical Decision Making MDM MDM: 60-year-old female coming in with complaints of her usual chronic back pain and dysuria. Denies having any fevers, nausea or vomiting. Patient states she had a fall over a week ago and thinks that exacerbated her chronic back pain. Patient states she has not taking none of her chronic pain medications like tramadol or Celebrex due to having to be NPO for a visit she was going to do with the GI. Blood work is unremarkable. Urine shows no evidence of urinary t ract infection. After pain medication patient states feels better. Discussed with the patient she needs to follow up with her pain specialist and or with PCP. Patient verbalized understanding, answered all questions. Differential diagnosis: Urinary tract infection, chronic back pain, Rationale: Tests considered and ordered secondary to shared decision making include: Previous outside records reviewed: Old ER visits. Risk of complication and/or morbidity or mortality of patient management: None Medications-Per medication reconciliation Need for hospitalization: Patient does not meet criteria for hospitalization. Need for emergency major/minor surgery: No There are no social concerns with this patient. Prescription drug management Prescriptions will include symptomatic care Patient's prior external medical records from other ER visits were reviewed by me as indicated. Prior testing and results from previous visits were reviewed. Prior tests were taken into account with medical decision making and resource utilization, independent historian/historians were used to obtain complete medical history. I independently interpreted the test that were performed, results were reviewed by me and considered findings on radiology if ordered. Medical management and examination interpretation discussions were had by me with other qualified healthcare professionals as indicated for the patient's care. DX & DISP Disposition: Discharge Departure Impression: Primary Impression: Chronic back pain Condition: Stable Additional Instructions: take your pain medications as prescribed. Referrals: FEDE CORNEJO MD (PCP) Time of Disposition: 13:22 I have reviewed the case, and I agree with, Diagnosis and Plan CATHY BADILLO NP May 21, 2025 13:23
[2025-05-21 13:35] VITALS: BP 140/85; PULSE 82; RESP 16; TEMP 98.3; O2SAT 98
== END 2025-05-21 13:39 | disposition home or self-care (01) ==
LOC: EDH 11:36
DX: G89.29 Other chronic pain (principal); M54.50 Low back pain, unspecified; Z79.82 Long term (current) use of aspirin; Z79.899 Other long term (current) drug therapy; Z87.440 Personal history of urinary (tract) infections; Z88.8 Allergy status to other drugs, medicaments and biological substances; Z90.49 Acquired absence of other specified parts of digestive tract; Z90.710 Acquired absence of both cervix and uterus
CPT/HCPCS: 36415; 80048; 81001; 85025; 87086; 99283